=== PATIENT | female | born 1995 | race Asian ===

== ENCOUNTER 2023-10-25 09:28 | Emergency (ER) | payer OTHER ==
[~2023-10-25] VITALS: Ht 152.4 cm; Wt 65.8 kg
[2023-10-25 09:35] VITALS: BP 115/74; PULSE 85; RESP 16; TEMP 98.1; O2SAT 98
[2023-10-25] MEDS ORDERED: LIDOCAINE MPF 1% 5 ML ONE (11:03)
[2023-10-25] MEDS: LIDOCAINE 2% 1000 MG/50 ML VIAL INJ ONE (11:15)
[2023-10-25] MEDS: BACITRACIN OINT 500 UNITS/GM PKT TP ONE (12:44)
[2023-10-25 12:54] VITALS: BP 115/74; PULSE 85; RESP 16; TEMP 98.1; O2SAT 98
== END 2023-10-25 12:54 | disposition home or self-care (01) ==
LOC: MED 09:28
DX: L60.0 Ingrowing nail (principal)
CPT/HCPCS: 11730; 11732; 99284; J2001

== ENCOUNTER 2024-03-27 09:36 | Emergency (ER) | payer OTHER ==
[~2024-03-27] VITALS: Ht 149.9 cm; Wt 57.8 kg
[2024-03-27 09:45] VITALS: BP 108/74; PULSE 70; RESP 14; TEMP 98.3; O2SAT 98
== END 2024-03-27 10:53 | disposition home or self-care (01) ==
LOC: MED 09:36
DX: L60.0 Ingrowing nail (principal)
CPT/HCPCS: 99281